=== PATIENT | female | born 1945 | race Caucasian/White ===

== ENCOUNTER 2019-11-13 11:13 | Inpatient (IN) | payer MEDICARE, OTHER ==
[~2019-11-13] VITALS: Ht 170.2 cm; Wt 113.6 kg
[~2019-11-13 11:13] MED LIST: ACCUFLORA PO; ALPR-623 PO; BUPR300T53 PO; CELE-193 PO; DOCU100C38 PO; FLUO20CA39 PO; GABA-532 PO; HYDR12.55 PO; SENN8.6C6 PO; TIZA2CAP7 PO; VALS160T2 PO; ZOLP10TA5 PO
[2019-11-13 11:44] LABS: BASOPHILS # (AUTO) 0.1 X10'3 (0-0.2); BASOPHILS % (AUTO) 0.9 % (0-1); EOSINOPHILS # (AUTO) 0.1 X10'3 (0-0.9); EOSINOPHILS % (AUTO) 1.1 % (0-6); HEMATOCRIT 43.2 % (35.0-45.0); HEMOGLOBIN 13.9 g/dl (12.0-16.0); LYMPHOCYTES # (AUTO) 1.4 X10'3 (1.1-4.8); LYMPHOCYTES % (AUTO) 15.8 % (21-51); MEAN CORPUSCULAR HGB CONC 32.2 g/dL (33.0-36.5); MEAN CORPUSCULAR VOLUME 99.1 FL (78-98); MEAN PLATELET VOLUME 9.1 FL (7.4-10.4); MONOCYTES # (AUTO) 0.8 X10'3 (0-0.9); MONOCYTES % (AUTO) 8.8 % (2-12); NEUTROPHILS # (AUTO) 6.4 X10'3 (1.8-7.7); NEUTROPHILS % (AUTO) 73.4 % (42-75); PLATELET COUNT 145 X10'3 (140-440); RED BLOOD COUNT 4.35 X10'6 (4.20-5.60); RED CELL DISTRIBUTION WIDTH 15.8 % (11.5-14.5); WHITE BLOOD COUNT 8.7 X10'3 (4.5-11.0)
[2019-11-13 11:59] LABS: ALANINE AMINOTRANSFERASE 386 U/L (12-78); ALBUMIN 3.5 G/DL (3.4-5.0); ALBUMIN/GLOBULIN RATIO 0.9 (1.1-1.5); ALKALINE PHOSPHATASE 173 IU/L (46-116); ANION GAP 10 (8-16); ASPARTATE AMINO TRANSFERASE 398 U/L (10-37); BILIRUBIN,TOTAL 2.1 MG/DL (0.1-1.0); BLOOD UREA NITROGEN 22 MG/DL (7-18); BUN/CREATININE RATIO 13.7 (6.6-38.0); CALCIUM 9.5 MG/DL (8.5-10.1); CHLORIDE 105 MMOL/L (99-107); CREATININE 1.61 MG/DL (0.40-0.90); GLUCOSE 98 MG/DL (70-104); POTASSIUM 4.5 MMOL/L (3.5-5.1); SODIUM 138 MMOL/L (135-145); TOTAL CARBON DIOXIDE 23.4 MMOL/L (24-32); TOTAL PROTEIN 7.5 G/DL (6.4-8.2); eGFR 31 ML/MIN
[2019-11-13 16:18] LABS: GLUCOSE,BODY FLUID 97 MG/DL; TOTAL PROTEIN,BODY FLUID 4.7 G/DL
[2019-11-13] MEDS ORDERED: ERGO500054 PO (16:22)
[2019-11-13] MEDS ORDERED: ALLO100T PO (16:22)
[2019-11-13] MEDS ORDERED: LOSA50TA64 PO (16:22)
[2019-11-13] MEDS ORDERED: SERT100T10 PO (16:22)
[2019-11-13] MEDS ORDERED: OXYB10TA30 PO (16:22)
[2019-11-13 16:26] LABS: BFSOURCE RIGHT PLEURAL FLD; PLEURAL FLUID PH 7.435 (7.63-7.65)
[2019-11-13] MEDS ORDERED: DIPH25CA52 PO (16:26)
[2019-11-13 16:29] LABS: BF RBC COUNT 1575 /CU MM; BF WBC COUNT 155 /CU MM (0-1000); BFAPPEAR HAZY; BFCOLOR YELLOW; BFVOLUME 57 ML; LYMPHOCYTES,BODY FLUID 82 %; MONOCYTES,BODY FLUID 13 %; NEUTROPHILS,BODY FLUID 5 %
[2019-11-13 16:30] LABS: BF MESOTHELIAL CELLS OCCASIONAL
[2019-11-13 16:33] LABS: LDH,BODY FLUID 136 U/L
[2019-11-13] MEDS ORDERED: hydrALAZINE 20mg/ml inj. IV ONE (17:35)
[2019-11-13] MEDS ORDERED: magnesium 2GM in 50ml NS 50 ML IV PRN (18:10)
[2019-11-13] MEDS ORDERED: mag hydrox/Alum hydrox/simeth 30ml oral suspension PO PRN (18:10)
[2019-11-13] MEDS ORDERED: potassium CL 10mEq/100ml bag 100 ML IV PRN ×2 (18:10)
[2019-11-13] MEDS ORDERED: HYDROcodone/acetaminophen 5mg/325mg tablet PO PRN (18:10)
[2019-11-13] MEDS ORDERED: ondansetron/PF 4mg/2ml inj IV PRN (18:10)
[2019-11-13] MEDS ORDERED: morphine 2 MG/ML inj. syringe IV PRN (18:10)
[2019-11-13] MEDS ORDERED: potassium Cl 20 mEq SR tablet PO PRN ×2 (18:10)
[2019-11-13] MEDS ORDERED: albuterol 2.5 MG/3 ML nebule NEB PRN ×2 (18:10)
[2019-11-13] MEDS ORDERED: magnesium Cl slow-release 64mg tablet PO PRN (18:10)
[2019-11-13] MEDS ORDERED: acetaminophen 325mg tablet PO PRN (18:10)
[2019-11-13] MEDS ORDERED: magnesium 4gm in 100ml NS 100 ML IV PRN (18:10)
--- NOTE | 2019-11-13 18:50 | NUR ---
Patient in room PCU 3016. I have received report from BREN ARMSTRONG and had the opportunity to ask questions and assume patient care.
[2019-11-13 19:00] VITALS: BP 170/98
[2019-11-13] MEDS: K and/or MAG REPLACEMENT MC SCH (20:00)
--- NOTE | 2019-11-13 20:21 | NUR ---
PAGED DR HERNANDEZ PAGER ID: [phone] MESSAGE: PT CIFRANIC IN 3016A HAS BP 170/91, HR 120, NO MEDS ORDERED FOR THIS. THANK YOU [id number]
--- NOTE | 2019-11-13 20:45 | NUR ---
SPOKE WITH MARY, NEW ORDERS FOR ONE TIME GIVE OF 25MG METOPROLOL TARTRATE PO.
[2019-11-13] MEDS ORDERED: metoprolol tartrate 25mg tablet PO SCH (20:50)
[2019-11-13] MEDS: docusate sod 100mg capsule PO SCH (21:53)
[2019-11-13 22:00] VITALS: BP 159/89
--- NOTE | 2019-11-14 00:36 | NUR ---
PAGED RT "PT CIFRTARIK IN 1411X HAS ORDERS FOR SVN TREATMENTS."
[2019-11-14 02:00] VITALS: BP 154/85
[2019-11-14 06:00] VITALS: BP 137/72
[2019-11-14 06:20] LABS: ALBUMIN 2.8 G/DL (3.4-5.0); ANION GAP 7 (8-16); BLOOD UREA NITROGEN 25 MG/DL (7-18); BUN/CREATININE RATIO 16.4 (6.6-38.0); CHLORIDE 106 MMOL/L (99-107); CREATININE 1.52 MG/DL (0.40-0.90); GLUCOSE 84 MG/DL (70-104); MAGNESIUM 1.9 MG/DL (1.5-2.4); POTASSIUM 4.8 MMOL/L (3.5-5.1); SODIUM 138 MMOL/L (135-145); TOTAL CARBON DIOXIDE 24.6 MMOL/L (24-32); eGFR 33 ML/MIN
--- NOTE | 2019-11-14 06:24 | NUR ---
Problems reprioritized. Patient report given, questions answered & plan of care reviewed with EFREN ARMSTRONG.
[2019-11-14 06:29] LABS: BASOPHILS % (AUTO) 0.5 % (0-1); EOSINOPHILS # (AUTO) 0.1 X10'3 (0-0.9); EOSINOPHILS % (AUTO) 1.5 % (0-6); HEMATOCRIT 40.7 % (35.0-45.0); HEMOGLOBIN 13.2 g/dl (12.0-16.0); LYMPHOCYTES # (AUTO) 1.5 X10'3 (1.1-4.8); LYMPHOCYTES % (AUTO) 18.6 % (21-51); MEAN CORPUSCULAR HEMOGLOBIN 31.8 PG (27.0-31.0); MEAN CORPUSCULAR HGB CONC 32.5 g/dL (33.0-36.5); MEAN CORPUSCULAR VOLUME 97.7 FL (78-98); MONOCYTES # (AUTO) 0.6 X10'3 (0-0.9); MONOCYTES % (AUTO) 7.6 % (2-12); NEUTROPHILS # (AUTO) 5.6 X10'3 (1.8-7.7); NEUTROPHILS % (AUTO) 71.8 % (42-75); PLATELET COUNT 122 X10'3 (140-440); RED BLOOD COUNT 4.17 X10'6 (4.20-5.60); RED CELL DISTRIBUTION WIDTH 16.2 % (11.5-14.5); WHITE BLOOD COUNT 7.8 X10'3 (4.5-11.0)
[2019-11-14] MEDS: K and/or MAG REPLACEMENT MC SCH ×2 (08:00→18:46)
[2019-11-14] MEDS: docusate sod 100mg capsule PO SCH ×2 (08:00→19:58)
[2019-11-14 11:00] VITALS: BP 142/76
[2019-11-14] MEDS ORDERED: ALPRAZolam 0.25mg tablet PO PRN (11:30)
[2019-11-14] MEDS ORDERED: tizanidine 4mg tablet PO PRN (11:40)
[2019-11-14] MEDS: allopurinol 100mg tablet PO SCH (13:50)
[2019-11-14 15:00] VITALS: BP 142/81
[2019-11-14 19:00] VITALS: BP 139/77
[2019-11-14] MEDS: oxybutynin 5mg tablet PO SCH (19:59)
[2019-11-14] MEDS: losartan 50mg tablet PO SCH (20:00)
[2019-11-14 22:00] VITALS: BP 148/82
[2019-11-15 02:00] VITALS: BP 144/81
[2019-11-15 05:45] LABS: ALBUMIN 3.2 G/DL (3.4-5.0); ANION GAP 8 (8-16); BLOOD UREA NITROGEN 24 MG/DL (7-18); BUN/CREATININE RATIO 15.8 (6.6-38.0); CALCIUM 9.2 MG/DL (8.5-10.1); CHLORIDE 104 MMOL/L (99-107); CREATININE 1.52 MG/DL (0.40-0.90); GLUCOSE 95 MG/DL (70-104); POTASSIUM 4.6 MMOL/L (3.5-5.1); SODIUM 137 MMOL/L (135-145); TOTAL CARBON DIOXIDE 24.8 MMOL/L (24-32); eGFR 33 ML/MIN
[2019-11-15 05:47] LABS: BASOPHILS # (AUTO) 0.1 X10'3 (0-0.2); BASOPHILS % (AUTO) 0.8 % (0-1); EOSINOPHILS # (AUTO) 0.2 X10'3 (0-0.9); HEMATOCRIT 43.7 % (35.0-45.0); HEMOGLOBIN 14.1 g/dl (12.0-16.0); LYMPHOCYTES # (AUTO) 1.7 X10'3 (1.1-4.8); LYMPHOCYTES % (AUTO) 19.7 % (21-51); MEAN CORPUSCULAR HEMOGLOBIN 31.7 PG (27.0-31.0); MEAN CORPUSCULAR HGB CONC 32.3 g/dL (33.0-36.5); MEAN CORPUSCULAR VOLUME 98.2 FL (78-98); MONOCYTES # (AUTO) 0.7 X10'3 (0-0.9); MONOCYTES % (AUTO) 8.6 % (2-12); NEUTROPHILS # (AUTO) 5.8 X10'3 (1.8-7.7); NEUTROPHILS % (AUTO) 68.9 % (42-75); PLATELET COUNT 146 X10'3 (140-440); RED BLOOD COUNT 4.46 X10'6 (4.20-5.60); RED CELL DISTRIBUTION WIDTH 16.4 % (11.5-14.5); WHITE BLOOD COUNT 8.4 X10'3 (4.5-11.0)
[2019-11-15 06:00] VITALS: BP 153/74
--- NOTE | 2019-11-15 06:09 | NUR ---
Problems reprioritized. Patient report given, questions answered & plan of care reviewed with Kellee ARMSTRONG.
[2019-11-15] MEDS: docusate sod 100mg capsule PO SCH ×2 (08:00→20:32)
--- NOTE | 2019-11-15 08:15 | NUR ---
Chest X-ray results: Message/Page to Dr. Patel Right Lobe Opacity
[2019-11-15] MEDS: allopurinol 100mg tablet PO SCH (08:29)
[2019-11-15] MEDS: losartan 50mg tablet PO SCH ×2 (08:29→20:32)
[2019-11-15] MEDS: oxybutynin 5mg tablet PO SCH ×2 (08:29→20:33)
[2019-11-15] MEDS: sertraline 50mg tablet PO SCH (08:29)
[2019-11-15] MEDS: K and/or MAG REPLACEMENT MC SCH ×2 (08:34→20:00)
[2019-11-15 09:11] LABS: ALANINE AMINOTRANSFERASE 485 U/L (12-78); ALBUMIN/GLOBULIN RATIO 0.8 (1.1-1.5); ALKALINE PHOSPHATASE 196 IU/L (46-116); ASPARTATE AMINO TRANSFERASE 532 U/L (10-37); BILIRUBIN,DIRECT 0.9 MG/DL (0-0.3); BILIRUBIN,TOTAL 2.2 MG/DL (0.1-1.0); TOTAL PROTEIN 7.1 G/DL (6.4-8.2)
--- NOTE | 2019-11-15 10:03 | NUR ---
lab Result:Positive nasal MRSA.
[2019-11-15] MEDS: furosemide 40mg/4ml inj IV SCH ×2 (10:48→20:31)
[2019-11-15 11:00] VITALS: BP 151/91
[2019-11-15 11:21] LABS: LACTATE DEHYDROGENASE 427 U/L (81-234)
[2019-11-15 15:00] VITALS: BP 127/85
[2019-11-15 18:00] VITALS: BP 127/73
--- NOTE | 2019-11-15 18:00 | NUR ---
Patient in room [facility]016. I have received report from Brionna ARMSTRONG and had the opportunity to ask questions and assume patient care. Addendum: 11/16/19 at 0357 by Kiara Sainz RN report from EFREN ARMSTRONG
--- NOTE | 2019-11-15 18:29 | NUR ---
Problems reprioritized. Patient report given, questions answered & plan of care reviewed with Tiffanie ARMSTRONG.
[2019-11-15 22:00] VITALS: BP 135/71
[2019-11-16 06:00] VITALS: BP 135/78
--- NOTE | 2019-11-16 06:20 | NUR ---
Problems reprioritized. Patient report given, questions answered & plan of care reviewed with Betito ARMSTRONG.
[2019-11-16 06:32] LABS: BASOPHILS % (AUTO) 0.6 % (0-1); EOSINOPHILS # (AUTO) 0.1 X10'3 (0-0.9); EOSINOPHILS % (AUTO) 1.8 % (0-6); HEMATOCRIT 41.6 % (35.0-45.0); HEMOGLOBIN 13.5 g/dl (12.0-16.0); LYMPHOCYTES # (AUTO) 1.5 X10'3 (1.1-4.8); LYMPHOCYTES % (AUTO) 19.8 % (21-51); MEAN CORPUSCULAR HGB CONC 32.5 g/dL (33.0-36.5); MEAN CORPUSCULAR VOLUME 98.3 FL (78-98); MEAN PLATELET VOLUME 8.7 FL (7.4-10.4); MONOCYTES # (AUTO) 0.6 X10'3 (0-0.9); NEUTROPHILS # (AUTO) 5.3 X10'3 (1.8-7.7); NEUTROPHILS % (AUTO) 69.8 % (42-75); PLATELET COUNT 122 X10'3 (140-440); RED BLOOD COUNT 4.23 X10'6 (4.20-5.60); RED CELL DISTRIBUTION WIDTH 16.2 % (11.5-14.5); WHITE BLOOD COUNT 7.7 X10'3 (4.5-11.0)
[2019-11-16 06:56] LABS: ALANINE AMINOTRANSFERASE 352 U/L (12-78); ALBUMIN 3.1 G/DL (3.4-5.0); ALBUMIN/GLOBULIN RATIO 0.9 (1.1-1.5); ALKALINE PHOSPHATASE 170 IU/L (46-116); ANION GAP 10 (8-16); ASPARTATE AMINO TRANSFERASE 316 U/L (10-37); BILIRUBIN,DIRECT 0.8 MG/DL (0-0.3); BILIRUBIN,TOTAL 1.9 MG/DL (0.1-1.0); BLOOD UREA NITROGEN 27 MG/DL (7-18); BUN/CREATININE RATIO 14.8 (6.6-38.0); CALCIUM 9.3 MG/DL (8.5-10.1); CHLORIDE 103 MMOL/L (99-107); CREATININE 1.83 MG/DL (0.40-0.90); GLUCOSE 94 MG/DL (70-104); MAGNESIUM 1.7 MG/DL (1.5-2.4); POTASSIUM 3.3 MMOL/L (3.5-5.1); SODIUM 139 MMOL/L (135-145); TOTAL CARBON DIOXIDE 26.2 MMOL/L (24-32); TOTAL PROTEIN 6.7 G/DL (6.4-8.2); eGFR 27 ML/MIN
[2019-11-16 08:05] VITALS: BP_SYST 135
[2019-11-16] MEDS: docusate sod 100mg capsule PO SCH (08:05)
[2019-11-16] MEDS: losartan 50mg tablet PO SCH (08:05)
[2019-11-16] MEDS: oxybutynin 5mg tablet PO SCH (08:05)
[2019-11-16] MEDS: allopurinol 100mg tablet PO SCH (08:05)
[2019-11-16] MEDS: sertraline 50mg tablet PO SCH (08:06)
[2019-11-16] MEDS: furosemide 40mg/4ml inj IV SCH (08:06)
[2019-11-16] MEDS: K and/or MAG REPLACEMENT MC SCH (08:11)
[2019-11-16] MEDS ORDERED: FURO40TA4 PO (10:05)
--- NOTE | 2019-11-16 11:45 | NUR ---
Patient stable for discharge per MD order. All discharge information and education reviewed with patient before signing necessary paperwork. IV discontinued with catheter in tact, groundwater monitoring technician removed and returned, all patient belongings packed up and sent with patient. New Rx called in to [facility] in [place]. Patient wheeled down to [facility] where her picked her up in private vehicle.
--- NOTE | 2019-11-18 11:19 | NUR ---
Case Management DC follow up: Spoke with pt spouse, Michael, via telephone, pt sleeping. Status post: SOB, R PE, R Thoracentesis 1.3L. reports for pt: "weak, and tired". Denies: acute/continuous cp, emergent SOB, acute general pain, resp distress, N/V, vertigo, sycope episodes, PAT blurry vision, abd pain/distension, diarrhea, constipation, bladder pain, dysuria, polyuria, hematuria, retention, urgency, unexplained bleeding/bruising,fever. no s/s to R puncture site. Verbalizes understanding of s/s that would warrant 12-24/ER visit for evaluation. Verbalizes understanding of Rx: Lasix, why prescribed, resumes current Rx as ordered, denies ase r/t polypharmacy. Went over orthostatic hypotension protocol as a precaution r/t new Rx lasix. Acknowledges need to schedule/keep follow up appts w/PCP/T candie [facility] 11/19/19, referral for sleep study, possible sleep apnea. Verbalizes compliance w/DC aftercare. Needs met, questions answered at DC, no further questions r/t post status DC at this time.
== END 2019-11-16 11:37 | disposition home or self-care (01) | DRG 292 ==
LOC: ER 11:14 → ED HOLD 18:06 → PCU 3S 19:16
PROVIDERS: ADMIT Internal Medicine; ATTEND Internal Medicine
DX: I13.0 Hypertensive heart and chronic kidney disease with heart failure and stage 1 through stage 4 chronic kidney disease, or unspecified chronic kidney disease (principal); Z68.41 Body mass index [BMI] 40.0-44.9, adult; I50.813 Acute on chronic right heart failure; F41.9 Anxiety disorder, unspecified; N18.3 Chronic kidney disease, stage 3 (moderate); F32.9 Major depressive disorder, single episode, unspecified; G89.29 Other chronic pain; M10.9 Gout, unspecified; M54.9 Dorsalgia, unspecified; Z20.828 Contact with and (suspected) exposure to other viral communicable diseases; R32 Unspecified urinary incontinence; Z66 Do not resuscitate; E66.01 Morbid (severe) obesity due to excess calories; Z79.899 Other long term (current) drug therapy; Z85.528 Personal history of other malignant neoplasm of kidney; Z85.828 Personal history of other malignant neoplasm of skin; Z90.49 Acquired absence of other specified parts of digestive tract; Z90.5 Acquired absence of kidney; Z90.710 Acquired absence of both cervix and uterus; Z98.1 Arthrodesis status
CPT/HCPCS: 36415; 71045; 71046; 74176; 76700; 80048; 80053; 80076; 82140; 82945; 83615; 83735; 83880; 83986; 84157; 84484; 85025; 87070; 87081; 89051; 93005; 93306; 94760; 96374; 99285; G0378; J0360; J1940

== ENCOUNTER 2019-11-24 09:03 | Day surgery (SDC) | payer MEDICARE, OTHER ==
[~2019-11-24] VITALS: Ht 170.2 cm; Wt 106.2 kg
[2019-11-24] VITALS (7 sets, daily range): BP systolic 110–129; BP diastolic 60–79
[~2019-11-24 09:03] MED LIST changes: -ACCUFLORA PO; +ALLO100T PO; -BUPR300T53 PO; -CELE-193 PO; +DIPH25CA52 PO; -DOCU100C38 PO; +ERGO500054 PO; -FLUO20CA39 PO; +FURO40TA4 PO; -GABA-532 PO; -HYDR12.55 PO; +LOSA50TA64 PO; +OXYB10TA30 PO; -SENN8.6C6 PO; +SERT100T10 PO; -VALS160T2 PO; -ZOLP10TA5 PO
[2019-11-24] MEDS ORDERED: vitamin D3 PO (09:35)
[2019-11-24] MEDS ORDERED: FURO40TA4 PO (09:38)
[2019-11-24 10:44] LABS: BFSOURCE RIGHT PLEURAL FLD; PLEURAL FLUID PH 7.484 (7.63-7.65)
[2019-11-24 11:06] LABS: GLUCOSE,BODY FLUID 118 MG/DL; LDH,BODY FLUID 132 U/L; TOTAL PROTEIN,BODY FLUID 4.7 G/DL
[2019-11-24 11:11] LABS: BFAPPEAR HAZY
[2019-11-24 11:12] LABS: BF RBC COUNT 4575 /CU MM; BF WBC COUNT 111 /CU MM (0-1000); BFCOLOR AMBER; BFVOLUME 57 ML; EOSINOPHILS,BODY FLUID 2 %; LYMPHOCYTES,BODY FLUID 80 %; MONOCYTES,BODY FLUID 12 %; NEUTROPHILS,BODY FLUID 6 %
[2019-11-24 11:21] LABS: BF MESOTHELIAL CELLS FEW
== END 2019-11-24 11:15 | disposition home or self-care (01) ==
LOC: SSTAY O 09:03
PROVIDERS: ATTEND Radiology Diagnostic Radiology
DX: J90 Pleural effusion, not elsewhere classified (principal); G89.29 Other chronic pain; M10.9 Gout, unspecified; F32.9 Major depressive disorder, single episode, unspecified; I12.9 Hypertensive chronic kidney disease with stage 1 through stage 4 chronic kidney disease, or unspecified chronic kidney disease; N18.3 Chronic kidney disease, stage 3 (moderate); E66.01 Morbid (severe) obesity due to excess calories; Z68.36 Body mass index [BMI] 36.0-36.9, adult; Z98.890 Other specified postprocedural states; Z90.49 Acquired absence of other specified parts of digestive tract; Z90.710 Acquired absence of both cervix and uterus; Z98.1 Arthrodesis status; Z90.5 Acquired absence of kidney; Z79.899 Other long term (current) drug therapy; Z88.8 Allergy status to other drugs, medicaments and biological substances
CPT/HCPCS: 32555; 71045; 82945; 83615; 83986; 84157; 87070; 89051

== ENCOUNTER 2019-12-07 18:14 | Emergency (ER) | payer MEDICARE, OTHER ==
[~2019-12-07] VITALS: Ht 170.2 cm; Wt 109.7 kg
[~2019-12-07 18:14] MED LIST changes: -ERGO500054 PO; +vitamin D3 PO
[2019-12-07 19:04] LABS: BASOPHILS % (AUTO) 0.7 % (0-1); EOSINOPHILS # (AUTO) 0.1 X10'3 (0-0.9); EOSINOPHILS % (AUTO) 1.6 % (0-6); HEMATOCRIT 46.8 % (35.0-45.0); LYMPHOCYTES # (AUTO) 1.8 X10'3 (1.1-4.8); LYMPHOCYTES % (AUTO) 30.5 % (21-51); MEAN CORPUSCULAR HEMOGLOBIN 31.4 PG (27.0-31.0); MEAN PLATELET VOLUME 9.8 FL (7.4-10.4); MONOCYTES # (AUTO) 0.5 X10'3 (0-0.9); MONOCYTES % (AUTO) 8.6 % (2-12); NEUTROPHILS # (AUTO) 3.4 X10'3 (1.8-7.7); NEUTROPHILS % (AUTO) 58.6 % (42-75); PLATELET COUNT 136 X10'3 (140-440); RED BLOOD COUNT 4.78 X10'6 (4.20-5.60); RED CELL DISTRIBUTION WIDTH 18.4 % (11.5-14.5); WHITE BLOOD COUNT 5.9 X10'3 (4.5-11.0)
[2019-12-07 19:19] LABS: ALANINE AMINOTRANSFERASE 21 U/L (12-78); ALBUMIN 3.2 G/DL (3.4-5.0); ALBUMIN/GLOBULIN RATIO 0.7 (1.1-1.5); ALKALINE PHOSPHATASE 123 IU/L (46-116); ANION GAP 11 (8-16); ASPARTATE AMINO TRANSFERASE 35 U/L (10-37); BILIRUBIN,TOTAL 1.3 MG/DL (0.1-1.0); BLOOD UREA NITROGEN 32 MG/DL (7-18); BUN/CREATININE RATIO 16.8 (6.6-38.0); CALCIUM 10.1 MG/DL (8.5-10.1); CHLORIDE 106 MMOL/L (99-107); CREATININE 1.91 MG/DL (0.40-0.90); GLUCOSE 97 MG/DL (70-104); SODIUM 142 MMOL/L (135-145); TOTAL CARBON DIOXIDE 24.6 MMOL/L (24-32); TOTAL PROTEIN 7.5 G/DL (6.4-8.2); eGFR 26 ML/MIN
[2019-12-07 21:21] LABS: TROPONIN I < 0.04 NG/ML (0.0-0.05)
--- NOTE | 2019-12-07 22:20 | NUR ---
assisting RN with pt care, pt amb with slow, slightly unsteady gait about 20 feet, Dr Wilson at bedside to reevaluate pt, pulse ox on room air after ambulation is 88%, RR 22, pt is coughing after procedure, 2 liters of fluid was removed via thoracentesis, placed pt on 3liters nasal cannula, pulse ox increased to 94%, pt is sipping water, reji well, no n/v, no resp distress
--- NOTE | 2019-12-08 00:36 | NUR ---
PT GIVEN 1L WATER TO DRINK. SHE HAS CURRENTLY HAD ABOUT 500ML
[2019-12-08 00:53] VITALS: BP 154/85
--- NOTE | 2019-12-08 00:53 | NUR ---
PT HAS CONSUMED APPROX 700ML WATER AT TIME OF D\C.
[2019-12-20] MEDS ORDERED: ALBU8.5H8 IH (11:37)
[2019-12-20] MEDS ORDERED: CHOL500049 PO (11:38)
== END 2019-12-08 01:06 | disposition home or self-care (01) ==
LOC: ER 18:15
DX: J90 Pleural effusion, not elsewhere classified (principal); R91.8 Other nonspecific abnormal finding of lung field; I10 Essential (primary) hypertension; G89.29 Other chronic pain; F32.9 Major depressive disorder, single episode, unspecified; Z90.49 Acquired absence of other specified parts of digestive tract; Z90.710 Acquired absence of both cervix and uterus; Z98.890 Other specified postprocedural states; Z88.8 Allergy status to other drugs, medicaments and biological substances; Z79.899 Other long term (current) drug therapy
CPT/HCPCS: 32555; 36415; 71045; 71250; 80053; 83880; 84484; 85025; 85610; 93005; 99285

== ENCOUNTER 2020-02-16 05:54 | Day surgery (SDC) | payer MEDICARE, OTHER ==
[~2020-02-16] VITALS: Ht 170.2 cm; Wt 109.0 kg
[~2020-02-16 05:54] MED LIST changes: +ALBU8.5H8 IH; -ALPR-623 PO; +CHOL500049 PO; -DIPH25CA52 PO; -TIZA2CAP7 PO; -vitamin D3 PO
[2020-02-16 06:05] VITALS: BP 131/84
[2020-02-16] MEDS ORDERED: fentaNYL/PF 50MCG/1 ML 2ML syringe ONE (06:09)
[2020-02-16] MEDS ORDERED: MIDAZolam 5mg/5ml vial ONE (06:09)
[2020-02-16] MEDS ORDERED: LIDOcaine Viscous 15ml cup ONE (06:10)
[2020-02-16] MEDS ORDERED: MAGN250T11 PO (06:16)
[2020-02-16 07:35] VITALS: BP 140/79
[2020-02-16 07:45] VITALS: BP 126/75
[2020-02-16 07:55] VITALS: BP 131/71
[2020-02-16 08:05] VITALS: BP 122/67
== END 2020-02-16 09:05 | disposition home or self-care (01) ==
LOC: GI LAB 05:54
PROVIDERS: ATTEND Internal Medicine Gastroenterology
DX: R13.10 Dysphagia, unspecified (principal); K22.2 Esophageal obstruction; K76.6 Portal hypertension; K31.89 Other diseases of stomach and duodenum; I85.00 Esophageal varices without bleeding
CPT/HCPCS: 43248; C1769; G0500; J2250; J3010; J7040; 99152; A4620